=== PATIENT | male | born 1965 | race Caucasian/White ===

== ENCOUNTER 2016-11-02 11:15 | Emergency (ER) | payer SELFPAY ==
[2016-11-02 12:21] LABS: HEMOGLOBIN 16.6 gm/dl (14.0-17.5); RED BLOOD COUNT 5.28 M/UL (4.20-5.50); WHITE BLOOD COUNT 8.1 K/UL (4.5-11.0)
== END 2016-11-02 17:55 | disposition home or self-care (01) ==
LOC: ER1 11:15
PROVIDERS: Emergency Medicine
DX: R07.89 Other chest pain (principal); R06.02 Shortness of breath; I25.2 Old myocardial infarction; I10 Essential (primary) hypertension; Z88.0 Allergy status to penicillin; Z88.2 Allergy status to sulfonamides; Z88.6 Allergy status to analgesic agent; Z88.8 Allergy status to other drugs, medicaments and biological substances; Z79.899 Other long term (current) drug therapy
CPT/HCPCS: 36415; 71020; 80053; 82550; 82553; 83690; 83874; 83880; 84484; 85025; 93005; 96374; 99285; J2405

== ENCOUNTER 2016-11-30 13:50 | Emergency (ER) | payer SELFPAY ==
[2016-11-30 14:36] LABS: HEMOGLOBIN 17.2 gm/dl (14.0-17.5); RED BLOOD COUNT 5.51 M/UL (4.20-5.50); WHITE BLOOD COUNT 9.6 K/UL (4.5-11.0)
[2016-11-30 15:15] LABS: BUN/CREATININE RATIO 14 (0-10)
== END 2016-11-30 15:55 | disposition home or self-care (01) ==
LOC: ER1 13:50
PROVIDERS: Student in an Organized Health Care Education/Training Program
DX: M25.50 Pain in unspecified joint (principal); R51 Headache; I10 Essential (primary) hypertension; F17.200 Nicotine dependence, unspecified, uncomplicated; Z88.0 Allergy status to penicillin; Z88.2 Allergy status to sulfonamides; Z88.8 Allergy status to other drugs, medicaments and biological substances
CPT/HCPCS: 36415; 80053; 83880; 85025; 99284; J1100; J1200; J2270; J2405

== ENCOUNTER → 2020-11-12 | Outpatient (CLI) | payer BC, OTHER ==
[~2020-11-12] MED LIST: ANTIVERT 25MG T25 MG PO; CLINDAMYCIN HC300 MG PO; FLAGYL500 MG PO; FLOMAX0.4 MG PO; IPRAT-ALBUT 0.5-3 ML INH; LEVAQUIN500 MG PO; PHENERGAN 25 MG25 M1 PO; PREDNISONE 50 M50 MG PO; PREDNISONE20 MG PO; PRINIVIL20 MG PO; PROVENTIL HFA6.7 GM INH; TORADOL 10 MG T10 MG PO; TRAMADOL HCL50 MG PO; VIBRAMYCIN100 MG PO; ZOFRAN4 MG PO
== END ==
LOC: RAD 21:35
DX: R05 Cough (principal)
CPT/HCPCS: 71046

== ENCOUNTER → 2021-02-06 | Outpatient (CLI) | payer BC, OTHER ==
[2021-02-06 10:11] LABS: HEMOGLOBIN 18.2 gm/dl (14.0-17.5); RED BLOOD COUNT 5.52 M/UL (4.20-5.50); WHITE BLOOD COUNT 7.5 K/UL (4.5-11.0)
[2021-02-06 10:32] LABS: BUN/CREATININE RATIO 13 (0-10)
== END ==
LOC: LAB 08:49
PROVIDERS: Physician Assistant Medical
DX: K50.919 Crohn's disease, unspecified, with unspecified complications (principal); I10 Essential (primary) hypertension; E78.2 Mixed hyperlipidemia; F34.1 Dysthymic disorder; G47.33 Obstructive sleep apnea (adult) (pediatric); G47.10 Hypersomnia, unspecified
CPT/HCPCS: 36415; 80053; 80061; 84443; 85025; 86140

== ENCOUNTER → 2021-02-27 | Outpatient (CLI) | payer BC ==
[~2021-02-27] VITALS: Ht 170.2 cm; Wt 96.2 kg
[2021-02-27 12:53] LABS: HEMOGLOBIN 17.6 gm/dl (14.0-17.5); RED BLOOD COUNT 5.32 M/UL (4.20-5.50); WHITE BLOOD COUNT 9.1 K/UL (4.5-11.0)
== END ==
LOC: OPSV 12:00
PROVIDERS: Physician Assistant Medical
DX: K50.10 Crohn's disease of large intestine without complications (principal)
CPT/HCPCS: 36415; 80053; 85025; 86140; 96365; J3380; J7030

== ENCOUNTER → 2021-03-07 | Outpatient (CLI) | payer BC | LOC: EROP 10:52 | DX: U07.1 COVID-19 (principal) | CPT/HCPCS: U0002 ==

== ENCOUNTER 2021-03-09 14:45 | Emergency (ER) | payer BC ==
[2021-03-09 15:32] LABS: HEMOGLOBIN 17.8 gm/dl (14.0-17.5); RED BLOOD COUNT 5.46 M/UL (4.20-5.50); WHITE BLOOD COUNT 5.3 K/UL (4.5-11.0)
[2021-03-09 15:57] LABS: BUN/CREATININE RATIO 10 (0-10)
== END 2021-03-09 18:45 | disposition home or self-care (01) ==
LOC: ER1 14:45
PROVIDERS: Emergency Medicine
DX: U07.1 COVID-19 (principal); I25.10 Atherosclerotic heart disease of native coronary artery without angina pectoris; I10 Essential (primary) hypertension; Z23 Encounter for immunization
CPT/HCPCS: 71045; 80053; 82550; 82553; 83874; 84484; 85025; 85379; 93005; 99284; M0243

== ENCOUNTER 2021-03-22 16:26 | Emergency (ER) | payer OTHER | END 2021-03-22 19:19 | disposition home or self-care (01) | LOC: ER1 16:26 | DX: S20.214A Contusion of middle front wall of thorax, initial encounter (principal); S80.211A Abrasion, right knee, initial encounter; I10 Essential (primary) hypertension; Z88.8 Allergy status to other drugs, medicaments and biological substances; F17.210 Nicotine dependence, cigarettes, uncomplicated; V49.40XA Driver injured in collision with unspecified motor vehicles in traffic accident, initial encounter | CPT/HCPCS: 71046; 73562; 93005; 99284 ==

== ENCOUNTER → 2021-03-23 | Outpatient (CLI) | payer BC ==
[~2021-03-23] VITALS: Ht 170.2 cm; Wt 96.2 kg
[2021-03-23 10:38] LABS: HEMOGLOBIN 16.9 gm/dl (14.0-17.5); RED BLOOD COUNT 5.17 M/UL (4.20-5.50); WHITE BLOOD COUNT 8.9 K/UL (4.5-11.0)
[2021-03-23 11:18] LABS: BUN/CREATININE RATIO 14 (0-10)
== END ==
LOC: OPSV 09:00
PROVIDERS: Internal Medicine Gastroenterology
DX: K50.10 Crohn's disease of large intestine without complications (principal)
CPT/HCPCS: 36415; 80053; 85025; 86140; 96365; J3380; J7050

== ENCOUNTER → 2021-03-31 | Outpatient (CLI) | payer BC | LOC: GENOP 20:01 | DX: R06.02 Shortness of breath (principal) | CPT/HCPCS: 71046 ==

== ENCOUNTER → 2021-04-07 | Outpatient (CLI) | payer BC ==
[~2021-04-07] VITALS: Ht 170.2 cm; Wt 96.2 kg
[2021-04-07 10:18] LABS: HEMOGLOBIN 18.2 gm/dl (14.0-17.5); RED BLOOD COUNT 5.49 M/UL (4.20-5.50); WHITE BLOOD COUNT 9.5 K/UL (4.5-11.0)
[2021-04-07 10:43] LABS: BUN/CREATININE RATIO 16 (0-10)
== END ==
LOC: OPSV 08:58
PROVIDERS: Internal Medicine Gastroenterology
DX: K50.10 Crohn's disease of large intestine without complications (principal)
CPT/HCPCS: 36415; 80053; 85025; 86140; 96365; J3380; J7050

== ENCOUNTER → 2021-04-11 | Outpatient (CLI) | payer BC | LOC: RAD 10:30 | DX: M25.551 Pain in right hip (principal); M50.322 Other cervical disc degeneration at C5-C6 level | CPT/HCPCS: 72040; 73502 ==

== ENCOUNTER → 2021-05-19 | Outpatient (CLI) | payer BC ==
[~2021-05-19] VITALS: Ht 170.2 cm; Wt 96.2 kg
[2021-05-19 09:15] LABS: HEMOGLOBIN 17.6 gm/dl (14.0-17.5); RED BLOOD COUNT 5.23 M/UL (4.20-5.50)
[2021-05-19 09:51] LABS: BUN/CREATININE RATIO 16 (0-10)
== END ==
LOC: OPSV 08:13
PROVIDERS: Internal Medicine Gastroenterology
DX: K50.80 Crohn's disease of both small and large intestine without complications (principal)
CPT/HCPCS: 36415; 80053; 85025; 86140; 96365; J3380; J7050

== ENCOUNTER → 2021-07-27 | Outpatient (CLI) | payer BC ==
[~2021-07-27] VITALS: Ht 170.2 cm; Wt 96.2 kg
[2021-07-27 10:59] LABS: BUN/CREATININE RATIO 13 (0-10)
[2021-07-27 11:20] LABS: HEMOGLOBIN 17.9 gm/dl (14.0-17.5); RED BLOOD COUNT 5.58 M/UL (4.20-5.50); WHITE BLOOD COUNT 9.1 K/UL (4.5-11.0)
== END ==
LOC: OPSV 08:44
PROVIDERS: Internal Medicine Gastroenterology
DX: K50.10 Crohn's disease of large intestine without complications (principal)
CPT/HCPCS: 36415; 80053; 85025; 86140; 96365; J3380; J7050

== ENCOUNTER → 2021-09-21 | Outpatient (CLI) | payer BC, OTHER ==
[~2021-09-21] VITALS: Ht 170.2 cm; Wt 96.2 kg
[2021-09-21 10:20] LABS: HEMOGLOBIN 18.6 gm/dl (14.0-17.5); RED BLOOD COUNT 5.86 M/UL (4.20-5.50); WHITE BLOOD COUNT 7.8 K/UL (4.5-11.0)
[2021-09-21 10:37] LABS: BUN/CREATININE RATIO 17 (0-10)
== END ==
LOC: OPSV 09:00
PROVIDERS: Internal Medicine Gastroenterology
DX: K50.10 Crohn's disease of large intestine without complications (principal)
CPT/HCPCS: 80053; 85025; 86140; 96365; J3380; J7050

== ENCOUNTER → 2021-10-03 | Outpatient (CLI) | payer BC, OTHER | LOC: SLEEP 12:32 | DX: G47.33 Obstructive sleep apnea (adult) (pediatric) (principal) | CPT/HCPCS: 95811 ==

== ENCOUNTER → 2022-03-16 | Outpatient (CLI) | payer BC, OTHER ==
[~2022-03-16] VITALS: Ht 170.2 cm; Wt 96.2 kg
[~2022-03-16] MED LIST changes: +PERCOCET 5-3251 EACH PO
[2022-03-16 08:54] LABS: HEMOGLOBIN 18.3 gm/dl (14.0-17.5); RED BLOOD COUNT 5.47 M/UL (4.20-5.50); WHITE BLOOD COUNT 9.1 K/UL (4.5-11.0)
[2022-03-16 09:16] LABS: BUN/CREATININE RATIO 15 (0-10)
== END ==
LOC: OPSV 08:00
PROVIDERS: Internal Medicine Gastroenterology
DX: K50.10 Crohn's disease of large intestine without complications (principal)
CPT/HCPCS: 80053; 85025; 86140; 96365; J3380; J7050

== ENCOUNTER 2022-03-20 17:38 | Emergency (ER) | payer BC, OTHER ==
[~2022-03-20 17:38] MED LIST changes: -PERCOCET 5-3251 EACH PO
[2022-03-20 19:21] LABS: RED BLOOD COUNT 6.25 M/UL (4.20-5.50); WHITE BLOOD COUNT 10.4 K/UL (4.5-11.0)
[2022-03-20 19:32] LABS: HEMOGLOBIN 20.1 gm/dl (14.0-17.5)
[2022-03-20 19:51] LABS: BUN/CREATININE RATIO 19 (0-10)
[2022-03-20] MEDS ORDERED: PERCOCET 5-3251 EACH PO (22:09)
[2022-03-20] MEDS ORDERED: FLOMAX0.4 MG PO (22:11)
== END 2022-03-20 22:18 | disposition home or self-care (01) ==
LOC: ER1 17:38
PROVIDERS: Physician Assistant
DX: N20.2 Calculus of kidney with calculus of ureter (principal); F17.200 Nicotine dependence, unspecified, uncomplicated; I25.2 Old myocardial infarction; Z86.73 Personal history of transient ischemic attack (TIA), and cerebral infarction without residual deficits; I51.9 Heart disease, unspecified; Z88.0 Allergy status to penicillin; Z88.2 Allergy status to sulfonamides; Z88.8 Allergy status to other drugs, medicaments and biological substances
CPT/HCPCS: 80053; 81001; 83690; 85025; 99284

== ENCOUNTER 2022-03-30 13:25 | Emergency (ER) | payer BC, OTHER ==
[~2022-03-30 13:25] MED LIST changes: +PERCOCET 5-3251 EACH PO
[2022-03-30 14:35] LABS: HEMOGLOBIN 18.5 gm/dl (14.0-17.5); RED BLOOD COUNT 5.84 M/UL (4.20-5.50); WHITE BLOOD COUNT 9.4 K/UL (4.5-11.0)
[2022-03-30 15:17] LABS: BUN/CREATININE RATIO 16 (0-10)
[2022-03-30] MEDS ORDERED: ZOFRAN 4 MG TAB4 MG PO (17:53)
[2022-03-30] MEDS ORDERED: HYDROCODON-ACE1 EAC4 PO (17:53)
[2022-03-30] MEDS ORDERED: PHENERGAN 25 MG25 M1 PO (17:59)
== END 2022-03-30 18:12 | disposition home or self-care (01) ==
LOC: ER1 13:25
PROVIDERS: Physician Assistant
DX: N20.1 Calculus of ureter (principal); I16.0 Hypertensive urgency; I10 Essential (primary) hypertension; F17.210 Nicotine dependence, cigarettes, uncomplicated; Z88.0 Allergy status to penicillin; Z88.8 Allergy status to other drugs, medicaments and biological substances
CPT/HCPCS: 80053; 81001; 83690; 85025; 96361; 96374; 96375; 99284; J1885; J2270; J2550

== ENCOUNTER 2022-04-09 11:50 | Emergency (ER) | payer BC, OTHER ==
[~2022-04-09 11:50] MED LIST changes: +HYDROCODON-ACE1 EAC4 PO; +ZOFRAN 4 MG TAB4 MG PO
[2022-04-09 13:26] LABS: HEMOGLOBIN 19.3 gm/dl (14.0-17.5); RED BLOOD COUNT 5.68 M/UL (4.20-5.50); WHITE BLOOD COUNT 8.8 K/UL (4.5-11.0)
[2022-04-09 13:47] LABS: BUN/CREATININE RATIO 15 (0-10)
[2022-04-09] MEDS ORDERED: ZOFRAN ODT 4 MG4 MG GT ×2 (15:41→15:42)
[2022-04-09] MEDS ORDERED: PERCOCET 5/325 T1 EA PO (15:44)
[2022-04-09] MEDS ORDERED: PHENERGAN 25 MG25 M1 PO (15:51)
[2022-04-09] MEDS ORDERED: FLOMAX0.4 MG PO (15:51)
[2022-04-09] MEDS ORDERED: CATAPRES 0.1MG0.1 MG PO (15:55)
== END 2022-04-09 16:15 | disposition home or self-care (01) ==
LOC: ER1 11:50
PROVIDERS: Physician Assistant
DX: N20.2 Calculus of kidney with calculus of ureter (principal); D75.1 Secondary polycythemia; I10 Essential (primary) hypertension; I25.2 Old myocardial infarction; F17.200 Nicotine dependence, unspecified, uncomplicated; Z90.89 Acquired absence of other organs; Z79.899 Other long term (current) drug therapy; Z88.0 Allergy status to penicillin; Z88.2 Allergy status to sulfonamides; Z88.8 Allergy status to other drugs, medicaments and biological substances
CPT/HCPCS: 74018; 80053; 81001; 85025; 87086; 96374; 96375; 99284; J1170; J1885; J2550

== ENCOUNTER 2022-04-18 19:43 | Emergency (ER) | payer BC, OTHER ==
[~2022-04-18 19:43] MED LIST changes: +CATAPRES 0.1MG0.1 MG PO; +PERCOCET 5/325 T1 EA PO; +ZOFRAN ODT 4 MG4 MG GT
[2022-04-18 21:37] LABS: HEMOGLOBIN 19.6 gm/dl (14.0-17.5); RED BLOOD COUNT 5.79 M/UL (4.20-5.50); WHITE BLOOD COUNT 12.2 K/UL (4.5-11.0)
[2022-04-18 21:51] LABS: BUN/CREATININE RATIO 11 (0-10)
== END 2022-04-19 00:50 | disposition home or self-care (01) ==
LOC: ER1 19:43
PROVIDERS: Physician Assistant
DX: N28.89 Other specified disorders of kidney and ureter (principal); R00.0 Tachycardia, unspecified; Z87.442 Personal history of urinary calculi; E78.5 Hyperlipidemia, unspecified; I11.9 Hypertensive heart disease without heart failure; F17.210 Nicotine dependence, cigarettes, uncomplicated; Z88.8 Allergy status to other drugs, medicaments and biological substances; Z88.0 Allergy status to penicillin; Z88.2 Allergy status to sulfonamides
CPT/HCPCS: 80053; 81001; 83690; 85025; 96374; 96375; 99284; J1170; J2550

== ENCOUNTER → 2022-05-04 | Outpatient (CLI) | payer BC, OTHER ==
[~2022-05-04] VITALS: Ht 170.2 cm; Wt 96.2 kg
[2022-05-04 09:41] LABS: HEMOGLOBIN 18.4 gm/dl (14.0-17.5); RED BLOOD COUNT 5.51 M/UL (4.20-5.50)
[2022-05-04 09:57] LABS: BUN/CREATININE RATIO 12 (0-10)
== END ==
LOC: OPSV 08:59
PROVIDERS: Internal Medicine Gastroenterology
DX: K50.80 Crohn's disease of both small and large intestine without complications (principal)
CPT/HCPCS: 80053; 85025; 86140; 96365; J3380; J7050